=== PATIENT | female | born 1945 | race Caucasian/White ===

== ENCOUNTER 2021-11-28 08:22 | Outpatient (CLI) | payer MEDICARE, SELFPAY ==
--- NOTE | 2021-11-28 08:31 | MM_ITS ---
WS: [id number] BILATERAL SCREENING DIGITAL MAMMOGRAM WITH CAD HISTORY: SCREENING COMPARISON: 01/07/2019 and 12/28/2017 Bilateral CC and MLO views submitted. Computer aided detection analyzed. Breast composition: The breasts are extremely dense, which lowers the sensitivity of mammography. No suspicious masses, microcalcifications or architectural distortion. Benign calcifications. Breast art erial calcifications are also identified. MM/[id number] IMPRESSION: BI-RADS: 2-Benign FOLLOW UP: 1 Year Follow-up
== END 2021-11-28 08:23 | disposition home or self-care (01) ==
LOC: RADSHAW 08:29
PROVIDERS: PCP Family Medicine; Visit Provider Family Medicine
DX: Z12.31 Encounter for screening mammogram for malignant neoplasm of breast (principal)
CPT/HCPCS: 77067

== ENCOUNTER 2021-12-03 08:29 | Outpatient (CLI) | payer MEDICARE, SELFPAY ==
--- NOTE | 2021-12-03 08:45 | XR_ITS ---
WS: [id number] SCREENING DEXA SCAN [facility] CLINICAL INFORMATION: POSTMENOPAUSAL COMPARISON: 2018 FINDINGS: The L1-L4 bone mineral density measures 1.314 g/cm2. This corresponds to a T score score of 1.1 and Z score of 3.1. Left femoral neck bone mineral density measures 0.851 g/cm2. This corresponds to a T score of -1.2 an d Z score of 0.6. Right femoral neck bone mineral density measures 0.821 g/cm2. This corresponds to a T score -1.5of an d Z score of 0.4. Mean femoral neck bone mineral density measures 0.836 g/cm2. This corresponds to a T score of -1.4 an d Z score of 0.5. XR/XR DEXA axial skeleton* [id number] IMPRESSION: Normal bone mineralization in the lumbar spine. Osteopenia in the femoral necks .. Patient's FRAX calculated 10 year probability for major osteoporotic fracture i s 12.9 % and osteoporotic hip fracture is 3.7%.
== END 2021-12-03 08:30 | disposition home or self-care (01) ==
PROVIDERS: PCP Family Medicine; Visit Provider Family Medicine
DX: Z78.0 Asymptomatic menopausal state (principal)
CPT/HCPCS: 77080

== ENCOUNTER → 2022-07-29 09:46 | Outpatient (BNVA) | payer MEDICARE, SELFPAY | PROVIDERS: PCP Family Medicine; Visit Provider Family Medicine | DX: Z00.00 Encounter for general adult medical examination without abnormal findings (principal) | CPT/HCPCS: 80053; 80061; 85025 ==

== ENCOUNTER → 2022-10-29 09:50 | Outpatient (BNVA) | payer MEDICARE, SELFPAY | PROVIDERS: PCP Family Medicine; Visit Provider Family Medicine | DX: E78.5 Hyperlipidemia, unspecified (principal) | CPT/HCPCS: 80053; 80061 ==

== ENCOUNTER 2023-01-09 13:02 | Outpatient (CLI) | payer MEDICARE, SELFPAY ==
--- NOTE | 2023-01-09 13:14 | MM_ITS ---
WS: [id number] BILATERAL 3D TOMOSYNTHESIS DIGITAL SCREENING MAMMOGRAM WITH CAD CLINICAL INFORMATION: SCREENING HISTORY: Screening mammogram. No current complaints. COMPARISON: November 28, 2021 TECHNIQUE: Bilateral CC and MLO. FINDINGS: The breast are composed of extremely dense tissue, which can limit the detection of small underlying mass lesions. No suspicious focal mass, asymmetry, calcifications, or architectural distortion. No ev idence of malignancy. Vascular calcifications. Incidental punctate calcifications. Biopsy marker LEFT breast. MM/[id number] IMPRESSION: BI-RADS: 2-Benign FOLLOW UP: 1 Year Follow-up Recommend return to annual screening mammography.
== END 2023-01-09 13:03 | disposition home or self-care (01) ==
PROVIDERS: PCP Family Medicine; Visit Provider Family Medicine
DX: Z12.31 Encounter for screening mammogram for malignant neoplasm of breast (principal)
CPT/HCPCS: 77063; 77067

== ENCOUNTER → 2023-05-20 12:43 | Outpatient (BNVA) | payer MEDICARE, SELFPAY | PROVIDERS: PCP Family Medicine; Visit Provider Family Medicine | DX: D72.819 Decreased white blood cell count, unspecified (principal); R00.2 Palpitations; E78.5 Hyperlipidemia, unspecified | CPT/HCPCS: 80053; 80061; 85025 ==

== ENCOUNTER 2024-01-29 07:47 | Outpatient (CLI) | payer MEDICARE, SELFPAY ==
--- NOTE | 2024-01-29 07:54 | MM_ITS ---
WS: [id number] BILATERAL SCREENING DIGITAL TOMOSYNTHESIS MAMMOGRAM WITH CAD HISTORY: SCREENING COMPARISON: 01/09/2023 and 11/28/2021, 01/07/2019 Bilateral CC and MLO views with tomosynthesis and synthetic mammography submitted. Computer aided det ection analyzed. Breast composition: The breasts are extremely dense, which lowers the sensitivity of mammography. No suspicious masses, microcalcifications or architectural distortion. Arterial and round calcifications within each breast are benign. IMPRESSION: MM/[place] [id number] BI-RADS: 2-Benign FOLLOW UP: 1 Year Follow-up
== END 2024-01-29 07:48 | disposition home or self-care (01) ==
LOC: RAD 07:48
PROVIDERS: PCP Family Medicine; Visit Provider Family Medicine
DX: Z12.31 Encounter for screening mammogram for malignant neoplasm of breast (principal)
CPT/HCPCS: 77063; 77067

== ENCOUNTER 2025-02-01 12:23 | Outpatient (CLI) | payer MEDICARE, SELFPAY ==
--- NOTE | 2025-02-01 12:38 | MM_ITS ---
WS: [email or web address] BILATERAL 3D TOMOSYNTHESIS DIGITAL SCREENING MAMMOGRAM WITH CAD CLINICAL INFORMATION: SCREENING HISTORY: Screening mammogram. No current complaints. COMPARISON: 2023 TECHNIQUE: Bilateral CC and MLO. FINDINGS: The breast are composed of extremely dense tissue, which can limit the detection of small underlying mass lesions. No suspicious focal mass, asymmetry, calcifications, or architectural distortion. No evidence of malignancy. Incidental punctate lucent centered calcifications. Vascular calcifications. MM/MM [facility] tomosynthesis [id number] IMPRESSION: DENSITY: The breasts are extremely dense, which lowers the sensitivity of mammo graphy. BI-RADS: 2 - Benign FOLLOW UP: 1 Year Follow-up Recommend return to annual screening mammography.
== END 2025-02-01 12:24 | disposition home or self-care (01) ==
PROVIDERS: PCP Family Medicine; Visit Provider Family Medicine
DX: Z12.31 Encounter for screening mammogram for malignant neoplasm of breast (principal); R92.343 Mammographic extreme density, bilateral breasts; R92.1 Mammographic calcification found on diagnostic imaging of breast
CPT/HCPCS: 77063; 77067

== ENCOUNTER → 2025-06-07 08:37 | Outpatient (BNVA) | payer MEDICARE, SELFPAY | PROVIDERS: PCP Family Medicine; Visit Provider Family Medicine | DX: Z00.00 Encounter for general adult medical examination without abnormal findings (principal); E78.5 Hyperlipidemia, unspecified; D72.819 Decreased white blood cell count, unspecified; R25.2 Cramp and spasm | CPT/HCPCS: 80053; 80061; 83540; 85025 ==

== ENCOUNTER → 2025-06-13 10:39 | Outpatient (BNVA) | payer MEDICARE, SELFPAY | PROVIDERS: PCP Family Medicine; Visit Provider Surgery | DX: R03.0 Elevated blood-pressure reading, without diagnosis of hypertension (principal); Z12.11 Encounter for screening for malignant neoplasm of colon | CPT/HCPCS: 99204 ==

== ENCOUNTER 2025-06-21 05:54 | Day surgery (SDC) | payer MEDICARE, SELFPAY ==
[2025-06-21 06:06] VITALS: BP 106/58; PULSE 84; RESP 16; TEMP 36.3; O2SAT 96; BMI 18.8
--- NOTE | 2025-06-21 06:38 | ANES.PREANE2 ---
Pre-Anesthetic Assessment Height/Weight: Height 1.7 m Weight 54.431 kg Temp Pulse Resp BP Pulse Ox O2 Del Method 97.3 F L 84 16 106/58 96 Room Air 06/21/25 06:06 06/21/25 06:06 06/21/25 06:06 06/21/25 06:06 06/21/25 06:06 06/21/25 06:06 Operation Date: 06/21/25 07:00 Proposed Procedures p Colonoscopy 46212 G0121 Z12.11(Not Applicable) - Mazin Aly MD Last intake: Intake Last Liquid Date 06/20/25 Last Liquid Time 21:00 Last Solid Date 06/19/25 Last Solid Time 21:00 Social No alcohol and No tobacco Exam alert, oriented x 3, clear to auscultation bilaterally and regular rate & rhythm Airway Submandibular: within normal limits Cervical ROM: within normal limits Mallampati: Class I Comments: Comments: intact History/ROS No significant history except as noted Pulmonary None reported CV/HEM None reported None reported Hepatic None reported GI None reported Metabolic leukopenia Musc/skel None reported Neuropsych Cerebrovascular Accident (old - no residual) [facility] Anesthetic Plan ASA status: 2 Anesthesia: MAC Risk of > 500 ml blood loss (7ml/kg in children): No Medications/Allergies Home Medications ?Medication ?Instructions ?Recorded ?Confirmed ?Last Taken ?Type aspirin 81 mg tablet 81 mg PO DAILY 06/13/25 06/21/25 06/19/25 History cholecalciferol (vitamin D3) 1,250 50,000 unit PO DAILY 06/13/25 06/21/25 06/19/25 History mcg (50,000 unit) capsule magnesium 200 mg tablet 200 mg PO DAILY 06/13/25 06/21/25 06/19/25 History Allergies Allergy/AdvReac Type Severity Reaction Status Date / Time ishmael Allergy ALGY-Anaphy Verified 06/21/25 06:05 laxis hydrocodone AdvReac Intermediate tongue Verified 06/21/25 06:05 swelling morphine AdvReac Intermediate stopped Verified 06/21/25 06:05 breathing Current Medications Generic Name Dose Route Start Last Admin Trade Name Freq PRN Reason Stop Dose Admin Sodium Chloride 1,000 mls @ 15 mls/hr 06/21/25 06:00 06/21/25 06:19 Sodium Chloride 0.9% IV 06/22/25 05:59 15 mls/hr .Q24H PRN Administration COLONOSCOPY FLUIDS PFSH Anesthesia Medical History Leukopenia Hyperlipidemia Family History (Updated 06/13/25 @ 10:[address]) Grandmother Cancer Social History Smoking and tobacco/nicotine status: never used tobacco/nicotine
--- NOTE | 2025-06-21 06:58 | P.HPUD_ITS ---
Surgery/Procedure H&P Update DATE OF PROCEDURE: June 21, 2025 DATE H&P PERFORMED: 06/13/25 H&P UPDATE INFORMATION: I have reviewed H&P completed within last 30 days, I have examined patient prior to procedure, No changes to prior documentation, H&P is in [facility] EMR on date indicated and Risks and benefits of the procedure reviewed PLANNED PROCEDURE: Operation Date: 06/21/25 07:00 Proposed Procedures p Colonoscopy 74111 G0121 Z12.11(Not Applicable) - Mazin Aly MD
--- NOTE | 2025-06-21 07:20 | PC.NURSE ---
cecum 0720
[2025-06-21 07:34] VITALS: BP 120/68; PULSE 80; RESP 16; TEMP 36.1; O2SAT 97
[2025-06-21 07:48] VITALS: BP 124/71; PULSE 71; RESP 18; O2SAT 97
--- NOTE | 2025-06-21 08:00 | ANE.PACU2 ---
Inpatient post-anesthesia follow up: Airway intact: Yes Vital signs: Temperature 97 F Pulse Rate 71 Respiratory Rate 18 Blood Pressure 124/71 Pulse Oximetry 97 Oxygen Delivery Me thod Room Air Oxygen Flow Rate Fraction of Inspir ed Oxygen Hydration adequate: Yes Nausea and vomiting: No Pain level: 1 Mental status: Baseline
== END 2025-06-21 08:01 | disposition home or self-care (01) ==
PROVIDERS: PCP Family Medicine; Visit Provider Surgery
PROC: 0DJD8ZZ Inspection of Lower Intestinal Tract, Via Natural or Artificial Opening Endoscopic (ICD-10-PCS; CPT 45378; principal; 2025-06-21 07:00)
DX: Z12.11 Encounter for screening for malignant neoplasm of colon (principal); K64.8 Other hemorrhoids; D72.819 Decreased white blood cell count, unspecified; Z86.73 Personal history of transient ischemic attack (TIA), and cerebral infarction without residual deficits; Z79.82 Long term (current) use of aspirin; E78.5 Hyperlipidemia, unspecified
CPT/HCPCS: G0121; J2704; J7030

== ENCOUNTER → 2025-07-04 08:56 | Outpatient (BNVA) | payer MEDICARE, SELFPAY | PROVIDERS: PCP Family Medicine; Visit Provider Family Medicine | DX: N18.9 Chronic kidney disease, unspecified (principal) | CPT/HCPCS: 85025 ==

== ENCOUNTER 2025-07-25 08:52 | Oncology outpatient (recurring) (ONCR) | payer MEDICARE, SELFPAY | END 2025-08-15 23:59 | disposition home or self-care (01) | LOC: ONCMED 08:52 | PROVIDERS: PCP Family Medicine; Visit Provider Internal Medicine Medical Oncology | DX: D70.9 Neutropenia, unspecified (principal); R03.0 Elevated blood-pressure reading, without diagnosis of hypertension | CPT/HCPCS: 99204 ==